=== PATIENT | female | born 1945 | race Caucasian/White ===

== ENCOUNTER → 2019-06-05 10:05 | Outpatient (BNVA) | payer MEDICARE, OTHER, SELFPAY | PROVIDERS: Family Provider Family Medicine; PCP Family Medicine; Visit Provider Nurse Practitioner Family | DX: R52 Pain, unspecified (principal); R09.81 Nasal congestion; Z68.33 Body mass index [BMI] 33.0-33.9, adult | CPT/HCPCS: 87804 ==

== ENCOUNTER → 2019-07-13 10:51 | Outpatient (BNVA) | payer MEDICARE, OTHER, SELFPAY | PROVIDERS: Family Provider Family Medicine; PCP Family Medicine; Visit Provider Family Medicine | DX: R06.02 Shortness of breath (principal); N39.0 Urinary tract infection, site not specified; R05 Cough; I51.7 Cardiomegaly | CPT/HCPCS: 71046; 81000 ==

== ENCOUNTER 2019-09-03 10:52 | Outpatient (CLI) | payer MEDICARE, OTHER, SELFPAY ==
--- NOTE | 2019-09-03 11:00 | USCV_ITS ---
Elena Rebolledo Age: 73 Gender: F : 1945 Exam Date: 09/03/2019 11:03 Ordering Phys: Kennedi Holley NP Technologist: Ro Mayer Exam Location: [facility] [place] Indication: HISTORY: CABG approximately 20 years ago. Bilateral GSV's appear to be surgically absent PROCEDURES: Bilateral duplex Venous Insufficiency study of the Deep and Superficial systems was carried out according to normal protocol with the patient in supine positon for deep system and dependent position for the superficial system. FINDINGS: No DVT or superficial thrombus seen in either leg Right GSV surgically absent, Right SSV no reflux noted. Vessel diameters noted above Left GSV surgically absent, Left SSV no reflux noted. Vessel diameters noted above CONCLUSIONS 1. No evidence of DVT in the above-mentioned identifiable veins. 2. The greater saphenous veins bilaterally are surgically removed 3. No significant venous reflux in the small saphenous veins bilaterally 4. The venous dimensions and the depth from the surface are as mentioned above Dr Kathy Farias MD [facility] (Electronically Signed) Final Date: 03 Sep 2019 19:52 S
== END 2019-09-03 10:53 | disposition home or self-care (01) ==
LOC: RAD 10:54
PROVIDERS: PCP Nurse Practitioner Family; Visit Provider Nurse Practitioner Family
DX: R60.9 Edema, unspecified (principal); M79.89 Other specified soft tissue disorders
CPT/HCPCS: 93970

== ENCOUNTER 2019-09-04 10:26 | Outpatient (CLI) | payer MEDICARE, OTHER, SELFPAY ==
--- NOTE | 2019-09-04 11:00 | USCV_ITS ---
AmauryLupe carrollte Age: 73 Gender: F : 1945 Exam Date: 09/04/2019 10:42 Ordering Phys: Kennedi Holley NP Technologist: Bree Diaz [place] [facility] [place]: EDEMA Risk Factors: Previous Vascular Surgery: RIGHT LEFT BP: 127.0 / BP: 119.0/ 0 0 Waveform Velocity (cm/s) Velocity (cm/s) Waveform Triphasic 104.5 Iliac Prox 131.1 Triphasic Triphasic 69.5 Iliac Mid 94.1 Triphasic Triphasic Iliac Distal Triphasic 99.1 80.9 Triphasic 84.3 STULL INSTALLER 82.1 Triphasic Triphasic 85.4 SFA Prox 94.7 Triphasic Triphasic 101.3 SFA Mid 145.9 Triphasic Triphasic 114.1 SFA Dist 107.8 Triphasic Triphasic 87.0 POP 61.9 Triphasic Biphasic 39.2 H[employer]ER 32.8 Biphasic Biphasic 51.8 DPA 32.5 Biphasic 0.9 AMAYA 1.0 FINDINGS Slightly diminished resting AMAYA on the right side Normal resting AMAYA on the left side Mild diffuse plaques in the iliac and femoral arteries bilaterally CONCLUSIONS Features of mild peripheral artery disease in the right side No significant arterial obstruction on the left side Mild diffuse plaques in the iliac and femoral arteries bilaterally Dr Kathy Farias MD [facility] (Electronically Signed) Final Date: 04 Sep 2019 15:22 S
== END 2019-09-04 10:27 | disposition home or self-care (01) ==
LOC: RAD 10:32
PROVIDERS: PCP Nurse Practitioner Family; Visit Provider Nurse Practitioner Family
DX: R60.9 Edema, unspecified (principal); I70.8 Atherosclerosis of other arteries
CPT/HCPCS: 93925

== ENCOUNTER → 2019-09-25 10:07 | Outpatient (BNVA) | payer MEDICARE, OTHER, SELFPAY | PROVIDERS: PCP Nurse Practitioner Family; Visit Provider Nurse Practitioner Family | DX: I10 Essential (primary) hypertension (principal); E11.9 Type 2 diabetes mellitus without complications; M79.89 Other specified soft tissue disorders; R23.8 Other skin changes | CPT/HCPCS: 80053; 80061; 83036; 84439; 84443 ==

== ENCOUNTER → 2020-02-08 14:35 | Outpatient (BNVA) | payer MEDICARE, OTHER, SELFPAY | PROVIDERS: PCP Nurse Practitioner Family; Visit Provider Nurse Practitioner Family | DX: R07.1 Chest pain on breathing (principal) | CPT/HCPCS: 71046 ==

== ENCOUNTER → 2020-03-07 11:01 | Outpatient (BNVA) | payer MEDICARE, OTHER, SELFPAY | PROVIDERS: PCP Nurse Practitioner Family; Visit Provider Nurse Practitioner Family | DX: R05 Cough (principal); R43.2 Parageusia; R43.0 Anosmia; R06.2 Wheezing | CPT/HCPCS: 87635 ==

== ENCOUNTER → 2022-04-23 14:54 | Outpatient (BNVA) | payer MEDICARE, OTHER, SELFPAY | PROVIDERS: PCP Nurse Practitioner Family; Visit Provider Family Medicine | DX: M25.551 Pain in right hip (principal) | CPT/HCPCS: 73502 ==